=== PATIENT | female | born 1965 | race African-American/Black ===

== ENCOUNTER 2020-10-07 22:40 | Inpatient (IN) | payer SELFPAY ==
[~2020-10-07] VITALS: Ht 172.7 cm; Wt 61.2 kg
[2020-10-07 22:51] VITALS: BP 190/98
[2020-10-07] MEDS ORDERED: ACETAMINOPHEN 325 MG TAB PO PRN (23:00)
[2020-10-07 23:45] VITALS: BP 190/98
[2020-10-08] VITALS (8 sets, daily range): BP systolic 134–190; BP diastolic 62–98
[2020-10-08] MEDS: CLONIDINE HCL 0.1 MG TAB PO PRN (01:51)
[2020-10-08 06:20] LABS: HEMATOCRIT 39.9 % (34.2-44.1); HEMOGLOBIN 13.1 g/dL (12.0-16.0); LYMPHOCYTES # (AUTO) 0.6 (1.0-3.2); LYMPHOCYTES % 12.3 % (18.0-39.1); MEAN CORPUSCULAR HEMOGLOBIN 32.8 pg (28-32); MEAN CORPUSCULAR HGB CONC 32.8 g/dL (31-35); MEAN CORPUSCULAR VOLUME 99.8 fL (81-99); MONOCYTES # (AUTO) 0.3 (0.2-0.8); MONOCYTES % 5.3 % (4.4-11.3); PLATELET COUNT 138 x10e3/uL (140-360); RED CELL DISTRIBUTION WIDTH 14.6 % (11.7-14.4)
[2020-10-08 06:51] LABS: ALANINE AMINOTRANSFERASE 21 IU/L (0-55); ALBUMIN 2.9 g/dL (3.5-5.0); ALBUMIN/GLOBULIN RATIO 0.6 (0.8-2.0); ALKALINE PHOSPHATASE 191 IU/L (40-150); BLOOD UREA NITROGEN 5 mg/dL (7-26); BUN/CREATININE RATIO 7 (6-25); CARBON DIOXIDE 25 mmol/L (22-29); CHLORIDE 101 mmol/L (98-107); CREATININE, SERUM 0.67 mg/dL (0.57-1.11); EST GLOMERULAR FILTRATION RATE > 60 ML/MIN (60-); GLUCOSE 140 mg/dL (74-118); SODIUM 138 mmol/L (136-145)
[2020-10-08] MEDS: METOPROLOL TARTRATE 25 MG TAB PO SCH ×2 (10:30→16:55)
[2020-10-08] MEDS: AMLODIPINE BESYLATE 5 MG TAB PO SCH (11:28)
[2020-10-08] MEDS: ASPIRIN 325 MG TAB PO SCH (11:28)
[2020-10-08] MEDS: FAMOTIDINE 20 MG TAB PO SCH ×2 (12:15→16:55)
[2020-10-08] MEDS: METOCLOPRAMIDE HCL 10 MG TAB PO SCH ×2 (12:15→16:55)
[2020-10-08] MEDS ORDERED: ATORVASTATIN 40 MG TAB PO SCH (21:00)
[2020-10-09] VITALS: BP 153/88
[2020-10-09 04:00] VITALS: BP 174/89
[2020-10-09] MEDS: CLONIDINE HCL 0.1 MG TAB PO PRN (05:09)
[2020-10-09 06:30] LABS: BASOPHILS % 0.2 % (0.0-1.0); EOSINOPHILS % 0.5 % (0.0-6.0); HEMOGLOBIN 12.6 g/dL (12.0-16.0); LYMPHOCYTES # (AUTO) 1.3 (1.0-3.2); LYMPHOCYTES % 23.9 % (18.0-39.1); MEAN CORPUSCULAR HEMOGLOBIN 33.2 pg (28-32); MEAN CORPUSCULAR HGB CONC 33.2 g/dL (31-35); MEAN CORPUSCULAR VOLUME 100.3 fL (81-99); MONOCYTES # (AUTO) 0.6 (0.2-0.8); MONOCYTES % 10.5 % (4.4-11.3); NEUTROPHILS # (AUTO) 3.6 (2.1-6.9); NEUTROPHILS % 64.4 % (38.7-80.0); PLATELET COUNT 132 x10e3/uL (140-360); RED BLOOD COUNT 3.79 x10e6/uL (3.6-5.1); RED CELL DISTRIBUTION WIDTH 14.7 % (11.7-14.4)
[2020-10-09 06:40] LABS: ALANINE AMINOTRANSFERASE 17 IU/L (0-55); ALBUMIN 2.5 g/dL (3.5-5.0); ALBUMIN/GLOBULIN RATIO 0.7 (0.8-2.0); ALKALINE PHOSPHATASE 149 IU/L (40-150); ANION GAP 12.5 mmol/L (8-16); BLOOD UREA NITROGEN 10 mg/dL (7-26); BUN/CREATININE RATIO 16 (6-25); CARBON DIOXIDE 28 mmol/L (22-29); CHLORIDE 103 mmol/L (98-107); CREATININE, SERUM 0.62 mg/dL (0.57-1.11); EST GLOMERULAR FILTRATION RATE > 60 ML/MIN (60-); GLUCOSE 95 mg/dL (74-118); POTASSIUM 3.5 mmol/L (3.5-5.1); SODIUM 140 mmol/L (136-145)
[2020-10-09 07:03] LABS: THYROID STIMULATING HORMONE 3.785 uIU/mL (0.350-4.940)
[2020-10-09 07:27] VITALS: BP 166/91
[2020-10-09 08:23] VITALS: BP 166/91
[2020-10-09] MEDS: ASPIRIN 325 MG TAB PO SCH (08:54)
[2020-10-09] MEDS: METOCLOPRAMIDE HCL 10 MG TAB PO SCH ×2 (08:54→17:04)
[2020-10-09] MEDS: FAMOTIDINE 20 MG TAB PO SCH ×2 (08:54→17:04)
[2020-10-09] MEDS: METOPROLOL TARTRATE 25 MG TAB PO SCH ×2 (08:55→17:04)
[2020-10-09] MEDS: AMLODIPINE BESYLATE 5 MG TAB PO SCH (08:55)
[2020-10-09 11:04] VITALS: BP 141/84
[2020-10-09 15:08] VITALS: BP 139/81
[2020-10-09] MEDS ORDERED: ASPIRIN EC81 MG PO (16:26)
[2020-10-09] MEDS ORDERED: METOCLOPRAMIDE10 MG PO (16:26)
[2020-10-09] MEDS ORDERED: NORVASC5 MG PO (16:26)
[2020-10-09] MEDS ORDERED: LOPRESSOR25 MG PO (16:26)
== END 2020-10-09 18:40 | disposition home or self-care (01) | DRG 313 ==
LOC: MED/SURG3 22:40 → OBSVTOIN 10-09 08:10
PROVIDERS: ADMIT Internal Medicine; ATTEND Internal Medicine
DX: R07.89 Other chest pain (principal); I10 Essential (primary) hypertension; K21.9 Gastro-esophageal reflux disease without esophagitis; E78.5 Hyperlipidemia, unspecified; K44.9 Diaphragmatic hernia without obstruction or gangrene; Z20.822 Contact with and (suspected) exposure to COVID-19; R16.1 Splenomegaly, not elsewhere classified; R74.01 Elevation of levels of liver transaminase levels
CPT/HCPCS: 36415; 76700; 80053; 80061; 83036; 83690; 84443; 84484; 85025; 93005; 93017; 93306; G0378